=== PATIENT | male | born 1990 | race Caucasian/White ===

== ENCOUNTER 2021-03-10 10:12 | Emergency (ER) | payer MEDICAID ==
[~2021-03-10] VITALS: Ht 177.8 cm; Wt 100.0 kg
[2021-03-10] MEDS ORDERED: ACETAMINOPHEN 325MG TABLET PO ONE (10:30)
[2021-03-10] MEDS ORDERED: IBUPROFEN 400MG TABLET PO ONE (10:30)
[2021-03-10] MEDS ORDERED: TOPUD MT (10:39)
[2021-03-10] MEDS ORDERED: IBUP-2028 MT (10:39)
[2021-03-10 11:03] VITALS: BP 140/80
== END 2021-03-10 11:10 | disposition home or self-care (01) ==
LOC: ER 10:12
DX: S09.8XXA Other specified injuries of head, initial encounter (principal); M79.18 Myalgia, other site; W10.9XXA Fall (on) (from) unspecified stairs and steps, initial encounter; Y93.01 Activity, walking, marching and hiking; Y92.9 Unspecified place or not applicable; F17.200 Nicotine dependence, unspecified, uncomplicated
CPT/HCPCS: 99283; Z7610

== ENCOUNTER 2022-05-18 16:55 | Emergency (ER) | payer MEDICAID ==
[~2022-05-18] VITALS: Ht 175.3 cm; Wt 100.0 kg
[~2022-05-18 16:55] MED LIST: IBUP-2028 MT; TOPUD MT
[2022-05-18] MEDS ORDERED: LIDOCAINE HCL 1% 20ML VIAL (Pyxis) INJ INFIL STA (18:26)
[2022-05-18] MEDS ORDERED: KETOROLAC 60MG/2ML VIAL IM ONE (18:30)
[2022-05-18] MEDS: KETOROLAC 60MG/2ML VIAL IM NR ×2 (21:45→21:50)
[2022-05-18] MEDS ORDERED: LIDOCAINE HCL 1% 20ML VIAL (Pyxis) INJ INFIL NR (21:45)
[2022-05-19] MEDS ORDERED: PRED10TA MT (03:03)
[2022-05-19] MEDS ORDERED: NAPR-681 MT (03:03)
[2022-05-19 03:15] VITALS: BP 133/89
== END 2022-05-19 03:15 | disposition home or self-care (01) ==
LOC: ER 16:55
DX: M79.674 Pain in right toe(s) (principal); R03.0 Elevated blood-pressure reading, without diagnosis of hypertension
CPT/HCPCS: 20600; 73630; 96372; 99285; J1885; J3490; Z7610

== ENCOUNTER 2023-03-21 20:49 | Emergency (ER) | payer MEDICAID, OTHER ==
[~2023-03-21] VITALS: Ht 177.8 cm; Wt 102.2 kg
[~2023-03-21 20:49] MED LIST changes: +NAPR-681 MT; +PRED10TA MT
[2023-03-21 23:07] LABS: BASOPHILS % 0.3 % (0.0-2.0); EOSINOPHILS % 0.9 % (0.0-5.0); HEMATOCRIT. 44.4 % (42.0-52.0); HEMOGLOBIN. 15.8 g/dL (14.0-18.0); LYMPHOCYTES % 14.2 % (20.0-50.0); MEAN CORPUSCULAR HEMOGLOBIN 31.5 pg (28.0-32.0); MEAN CORPUSCULAR VOLUME 88.6 fL (80.0-94.0); MEAN PLATELET VOLUME 8.2 fl (7.4-10.4); MONOCYTES % 8.4 % (2.0-8.0); NEUTROPHILS % 76.2 % (40.0-76.0); PLATELET 325 x1000/uL (130-400); RED BLOOD CELL COUNT 5.01 mill/uL (4.7-6.1); RED CELL DISTRIBUTION WIDTH 12.7 % (11.6-14.6)
[2023-03-21 23:16] LABS: CHLORIDE 100 mEq/L (98-107)
[2023-03-22] MEDS ORDERED: CEFTRIAXONE SODIUM 1 G/VIAL IM NR (01:30)
[2023-03-22] MEDS ORDERED: HYDROCODONE/ACETAMINOPHEN 5/325MG TABLET PO NR (01:30)
[2023-03-22 01:45] VITALS: BP 119/82
[2023-03-22] MEDS ORDERED: HYDR-4001 MT (01:52)
[2023-03-22] MEDS ORDERED: PENI500T MT (01:52)
== END 2023-03-22 02:31 | disposition home or self-care (01) ==
LOC: ER 20:49
DX: K05.10 Chronic gingivitis, plaque induced (principal); F12.90 Cannabis use, unspecified, uncomplicated
CPT/HCPCS: 36415; 80053; 83605; 85025; 87040; 96372; 99283; J0696

== ENCOUNTER 2024-03-08 00:38 | Emergency (ER) | payer SELFPAY ==
[~2024-03-08] VITALS: Ht 172.7 cm; Wt 100.0 kg
[~2024-03-08 00:38] MED LIST changes: +HYDR-4001 MT; +PENI500T MT
[2024-03-08 00:44] VITALS: PULSE 120; RESP 22; TEMP 98.6; O2SAT 98
== END 2024-03-08 02:01 ==
LOC: ER 00:38
DX: Z76.89 Persons encountering health services in other specified circumstances (principal); F12.90 Cannabis use, unspecified, uncomplicated
CPT/HCPCS: 99283

== ENCOUNTER 2024-07-03 07:45 | Emergency (ER) | payer MEDICAID ==
[~2024-07-03] VITALS: Ht 172.7 cm; Wt 95.0 kg
[~2024-07-03 07:45] MED LIST changes: +AMOX1TAB16 MT
[2024-07-03 07:59] VITALS: O2SAT 100
[2024-07-03] MEDS ORDERED: IBUP-2029 MT (09:48)
[2024-07-03] MEDS ORDERED: TOPUD MT (09:48)
[2024-07-03] MEDS ORDERED: DEXTL MT (09:49)
[2024-07-03 10:36] VITALS: BP 120/68; PULSE 78; RESP 16; TEMP 98.1
== END 2024-07-03 10:37 | disposition home or self-care (01) ==
LOC: ER 07:45
DX: J06.9 Acute upper respiratory infection, unspecified (principal); F12.10 Cannabis abuse, uncomplicated; Z79.899 Other long term (current) drug therapy
CPT/HCPCS: 99282; Z7610

== ENCOUNTER 2024-07-18 13:53 | Emergency (ER) | payer MEDICAID ==
[~2024-07-18] VITALS: Ht 175.3 cm; Wt 81.0 kg
[~2024-07-18 13:53] MED LIST changes: +DEXTL MT; +IBUP-2029 MT
[2024-07-18 14:09] VITALS: BP 121/87; PULSE 105; TEMP 98.7; O2SAT 98
[2024-07-18] MEDS ORDERED: BENZ200C52 MT (15:37)
[2024-07-18 16:27] VITALS: RESP 16
== END 2024-07-18 17:00 | disposition home or self-care (01) ==
LOC: ER 14:00
DX: R05.9 Cough, unspecified (principal); Z79.899 Other long term (current) drug therapy
CPT/HCPCS: 71045; 93005; 99283